=== PATIENT | male | born 1935 | race Caucasian/White ===

== ENCOUNTER 2017-12-24 22:06 | Inpatient (IN) | payer MEDICARE ==
[~2017-12-24] VITALS: Ht 185.4 cm; Wt 100.0 kg
[2017-12-25] VITALS: BP 164/100; PULSE 103; RESP 20; TEMP 97.6; O2SAT 95
[2017-12-25] MEDS ORDERED: ACETAMINOPHEN 325 MG TAB PO PRN (00:30)
[2017-12-25] MEDS ORDERED: MAGNESIUM HYDROXIDE SUSP 30 ML CUP PO PRN (00:30)
[2017-12-25] MEDS ORDERED: ALUMINUM/MAGNESIUM/SIMETH 30 ML CUP PO PRN (00:30)
[2017-12-25] MEDS ORDERED: DEXTROSE 50% IN WATER 50 ML VIAL(D50) IV PUSH PRN (00:45)
[2017-12-25 06:06] VITALS: BP 125/62; PULSE 76; RESP 18; TEMP 97.7; O2SAT 94
[2017-12-25 07:50] LABS: BICARBONATE 25.7 MEQ/L (21.0-32.0); BLOOD UREA NITROGEN 22 MG/DL (7-18); CALCIUM 8.8 MG/DL (8.5-10.1); CHLORIDE 106 MEQ/L (98-107); CREATININE 0.87 MG/DL (0.60-1.30); GLOMERULAR FILTRATION RATE 84 ML/MIN (>89); GLUCOSE,RANDOM 132 MG/DL (74-106); SODIUM (NA) 142 MEQ/L (136-145)
[2017-12-25 07:52] LABS: CHOLESTEROL 81 MG/DL (120-200); TRIGLYCERIDES 81 MG/DL (42-150)
[2017-12-25 07:53] LABS: CHOLESTEROL/ HDL RATIO 2.19 RATIO; HDL CHOLESTEROL 36.9 MG/DL (40.0-60.0); LDL CHOLESTEROL 28 MG/DL (0-99)
[2017-12-25] MEDS ORDERED: INDIVIDUALIZED INSULIN NOVOLIN REGULAR SUPPLEMENTAL SCALE SQ SCH (08:00)
[2017-12-25] MEDS: LOW DOSE INSULIN NOVOLOG SUPPLEMENTAL SCALE SQ SCH ×2 (08:10→11:25)
[2017-12-25] MEDS ORDERED: METOPROLOL TARTRATE 100 MG TAB PO SCH (09:00)
[2017-12-25] MEDS ORDERED: NICOTINE 21 MG/24 HR PATCH T-DERMAL SCH (09:00)
[2017-12-25] MEDS ORDERED: HYDROCHLOROTHIAZIDE 12.5 MG CAP PO SCH (09:00)
[2017-12-25] MEDS ORDERED: CLOPIDOGREL 75 MG TAB PO SCH (09:00)
[2017-12-25] MEDS ORDERED: metFORMIN HCL 500 MG TAB PO SCH ×2 (09:00→21:00)
--- NOTE | 2017-12-25 10:10 | HHI.HP ---
Provisional Diagnosis Admission Date Dec 24, 2017 at 23:50 [place]. Adjustment disorder with mixed disturbances of emotion and conduct Certification of Person's Competence To Provide Express and Informed Consent I have personally examined Aidan Diaz , a person being served at [facility] on, Dec 25, 2017 09:52. Express and informed consent means consent voluntarily given in writing, by a competent person, after sufficient explanation and disclosure of the subject matter involved to enable the person to make a knowing and willful decision without any element of force, fraud, deceit, duress, or other form of constraint or coercion. This person is 18 years of age or older, is not now known to be incompetent to consent to treatment with a guardian advocate, and does not have a health care surrogate or proxy currently making medical treatment decisions. I have found this person to be one of the following: [xxxx] Competent to provide express and informed consent, as defined above, for voluntary admission to this facility and is competent to provide express and informed consent for treatment. He/she has the consistent capacity to make well reasoned, willful, and knowing decisions concerning his or her medical or mental health treatment. The person fully and consistently understands the purpose of the admission for examination/placement and is fully capable of personally exercising all rights assured under [place] Incompetent to provide express and informed consent to voluntary admission, and this is incompetent to provide express and informed consent to treatment. The person must be transferred to involuntary status and a petition for a guardian advocate filed with the Circuit Court. [] Refusing to provide express and informed consent to voluntary admission but is competent to provide express and informed consent for treatment. The person must be discharged or transferred to involuntary status. Form shall be completed within 24 hours of a person's arrival at the receiving facility and filed in the clinical record of each person: 1. Admitted on a voluntary basis 2. Permitted to provide express and informed consent to his/her own treatment 3. Allowed to transfer from involuntary to voluntary status 4. Prior to permitting a person to consent to his or her own treatment after having been previously found incompetent to consent to treatment. History of Present Illness Capacity: Has Capacity HPI Patient is an 82-year-old white male initially came to [facility] under a Hay act by the [facility] [employer] dated 12/24/2017 at 4:30 PM that document reviewed essentially states on 12/24/17 approximately 2:13 PM dispatch received a call from [facility] because is something that told his doctor that he was going to shoot himself in the shower. Clinic advised that the subject is bipolar and his terminal illness the case hardener told dispatch that he is very violent and that his is home once the left the residence she stated that Aidan was last seen at the desk where his handgun is stored attempts to call Aidan out of the residence where successful after approximately 1 hour upon exiting. Became extremely upset and attempted to make his way back to the desk stating there is no gone in there that is located in the desk Aidan told officers that he had a plan to shoot himself with shower so there would be no mess. Patient was seen screen in that facility urine toxicology negative blood alcohol level negative patient was medically cleared and transferred to this facility under the Hay act. At the present time patient sitting quietly in Sujey chair in the day room he is alert oriented calm cooperative with me. He states he has had some depression related to his diagnosis stage IV abdominal cancer undergoing chemotherapy at the present time though he states he is showing some slight improvement with that. He feels that he was arrested and incarcerated with this. I attempted to explain the Hay act to be did process that well. He states he did talk to his doctor yesterday morning and they asked him how he felt. He talked about being somewhat depressed. I think the aspirin if he had a firearm in the house. He said yes them the patient stated that he told in a joking manner that if he want to kill himself he take the gun out of the shower so he would not make a mass. Patient just moved here from [place] within the past year he has lived there all his life. [place] lives in the cabin and always have a firearm. 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 He also states that he is a member of the [employer] and did active and plays and movies based in [place]. He appears to been quite active man at the present time living with his second of 20+ years. He has 3 adult children and 8 grandchildren going through to college. He denies alcohol or drug use. He does deny suicidality homicidality voice or visions. He denies any prior psychiatric contact hospitalization psychotropic medication but it appears she may have had some brief psychiatric contact and number of years ago may be carrying a diagnosis of bipolar disorder but he does not describe any significant mood swings that appears at times he made B's somewhat hypomanic. Patient denies any physical or sexual abuse. He has had some various prior significant medical issues including cardiac issues with bypass surgery. And diabetes. I did call patient's . Her name is Sudha. She verify the above information. Also states that she feels he may have had some hypomanic episodes throughout his life. He has not been treated. Except for perhaps a brief time with Zoloft many years ago. In any event patient's will be coming here to visit with us within a few hours. We will determine what course of action to take it at that time. Review of Systems Constitutional: DENIES: Diaphoretic episodes, Fatigue, Fever, Weight gain, Weight loss, Chills, Dizziness, Change in appetite, Night Sweats Endocrine: DENIES: Heat/cold intolerance, Polydipsia, Polyuria, Polyphagia Eyes: DENIES: Blurred vision, Diplopia, Eye inflammation, Eye pain, Vision loss , Photosensitivity, Double Vision Ears, nose, mouth, throat: DENIES: Tinnitus, Hearing loss, Vertigo, Nasal discharge, Oral lesions, Throat pain, Hoarseness, Ear Pain, Running Nose, Epistaxis, Sinus Pain, Toothache, Odynophagia Respiratory: DENIES: Apneas, Cough, Snoring, Wheezing, Hemoptysis, Sputum production, Shortness of breath Cardiovascular: DENIES: Chest pain, Palpitations, Syncope, Dyspnea on Exertion , PND, Lower Extremity Edema, Orthopnea, Claudication Gastrointestinal: DENIES: Abdominal pain, Black stools, Bloody stools, Constipation, Diarrhea, Nausea, Vomiting, Difficulty Swallowing, Anorexia Genitourinary: DENIES: Sexual dysfunction, Urinary frequency, Urinary incontinence, Urgency, Hematuria, Dysuria, Nocturia, Penile Discharge, Testicular Pain, Testicular Swelling Musculoskeletal: DENIES: Joint pain, Muscle aches, Stiffness, Joint Swelling, Back pain, Neck pain Integumentary: DENIES: Abnormal pigmentation, Nail changes, Pruritus, Rash Hematologic/lymphatic: DENIES: Bruising, Lymphadenopathy Immunologic/allergic: DENIES: Eczema, Urticaria Neurologic: DENIES: Abnormal gait, Headache, Localized weakness, Paresthesias, Seizures, Speech Problems, Tremor, Poor Balance Psychiatric: COMPLAINS OF: Depression (Patient minimizes), Suicidal Ideation ( Patient denies) Past Psych History Psychological trauma history Patient denies Violence risk - others (6 mos) Low Violence risk - self (6 mos) Low to moderate Substance Abuse History Drugs/Alcohol past 12 months Patient denies Past Family Social History Coded Allergies: No Known Allergies (Unverified , 12/24/17) Past Medical History Strong history cardiac issues diabetes, and now stage IV cancer of the abdomen Current Medications Medications (Trade) Dose Ordered Sig/Sherwin Route Start Time Stop Time Status Last Admin (Tylenol) 650 mg Q4H PRN PO 12/25/17 00:30 (Milk Of Magnesia Liq) 30 ml DAILY PRN PO 12/25/17 00:30 (Mag-Al Plus Susp Liq) 30 ml Q6H PRN PO 12/25/17 00:30 (Habitrol 21 Mg Patch.24 Hr) 1 patch DAILY T-DERMAL 12/25/17 09:00 Miscellaneous Information 1 HS T-DERMAL 12/25/17 21:00 (Norvasc) 10 mg DAILY PO 12/25/17 09:00 (Plavix) 75 mg DAILY PO 12/25/17 09:00 (Microzide) 12.5 mg DAILY PO 12/25/17 09:00 (Glucophage) 500 mg DAILY PO 12/25/17 09:00 (Glucophage) 1,000 mg HS PO 12/25/17 21:00 (Lopressor) 100 mg BID PO 12/25/17 09:00 (Lipitor) 40 mg HS PO 12/25/17 21:00 (D50w (Vial) Inj) 50 ml UNSCH PRN IV PUSH 12/25/17 00:45 (NovoLOG SUPPLEMENTAL SCALE) 1 ACHS SLIDING SCALE SQ 12/25/17 08:00 Family Psych History None known Social History Patient lives with his second he has adult children and grandchildren he is quite close to Patient's Strengths (min. 2) Patient verbal able access healthcare Physical Exam Patient medically cleared [facility] at the present time patient quietly in his chair in the dayroom he is in no acute distress, no complaints of chest pain, is in no respiratory distress, no complaints of abdominal pain patient moving all 4 extremities without difficulty Vital Signs Vital Signs Date Time Temp Pulse Resp B/P (MAP) Pulse Ox O2 Delivery O2 Flow Rate FiO2 12/25/17 06:06 97.7 76 18 125/62 (83) 94 I/O 12/25/17 12/25/17 12/26/17 08:00 16:00 00:00 Intake Total 700 ml 240 ml Balance 700 ml 240 ml Lab Results Test 12/25/17 05:52 Blood Urea Nitrogen 22 MG/DL Creatinine 0.87 MG/DL Random Glucose 132 MG/DL Calcium Level 8.8 MG/DL Sodium Level 142 MEQ/L Potassium Level 4.2 MEQ/L Chloride Level 106 MEQ/L Carbon Dioxide Level 25.7 MEQ/L Anion Gap 10 MEQ/L Estimat Glomerular Filtration Rate 84 ML/MIN Triglycerides Level 81 MG/DL Cholesterol Level 81 MG/DL LDL Cholesterol 28 MG/DL HDL Cholesterol 36.9 MG/DL Cholesterol/HDL Ratio 2.19 RATIO Mental Status Examination Appearance: Appropriate Consciousness: Alert Orientation: x4 Motor Activity: Normal gait Speech: Unremarkable Language: Adequate Fund of Knowledge: Adequate Attention and Concentration: Adequate Memory: Unremarkable Mood: Other (Euthymic to mildly dysphoric) Affect: Other (Good range and intensity) Thought Process & Associations: Intact Thought Content: Appropriate Hallucination Type: None Delusion Type: None Suicidal Ideation: No Suicidal Plan: No Suicidal Intention: No Homicidal Ideation: No Homicidal Plan: No Homicidal Intention: No Insight: Adequate Judgment: Adequate Assessment & Plan Problem List: (1) Adjustment disorder with mixed disturbance of emotions and conduct ICD Codes: F43.25 - Adjustment disorder with mixed disturbance of emotions and conduct Assessment & Plan Estimated LOS: days at this time patient does not meet Hay criteria lift Hay act allow patient to sign voluntary. We will be meeting with the patient' s than an hour to discuss further treatment with her this be inpatient or outpatient and medication treatment Discharge Planning To be determined Request HC Surrog/Guard Advoc?: Dillon Motta MD Dec 25, 2017 10:10
[2017-12-25] MEDS ORDERED: ZOLO25TA PO (12:43)
--- NOTE | 2017-12-25 12:46 | HHI.DS ---
Psychiatry Discharge Summary Inpatient Psychiatric care?: Yes Advance Directive: No Reason Not Provided: DECLINED Mental Health AdvanceDirective: No Health Care Proxy: No Admission Admission Date Dec 24, 2017 at 23:50 Admission Diagnosis: (1) Adjustment disorder with mixed disturbance of emotions and conduct ICD Code: F43.25 - Adjustment disorder with mixed disturbance of emotions and conduct Brief History Patient is an 82-year-old white male initially came to [facility] under a Hay act by the [facility] [employer] dated 12/24/2017 at 4:30 PM that document reviewed essentially states on 12/24/17 approximately 2:13 PM dispatch received a call from [facility] because is something that told his doctor that he was going to shoot himself in the shower. Clinic advised that the subject is bipolar and his terminal illness the piano case and bench assembler told dispatch that he is very violent and that his is home once the left the residence she stated that Aidan was last seen at the desk where his handgun is stored attempts to call Aidan out of the residence where successful after approximately 1 hour upon exiting. Became extremely upset and attempted to make his way back to the desk stating there is no gone in there that is located in the desk Aidan told officers that he had a plan to shoot himself with shower so there would be no mess. Patient was seen screen in that facility urine toxicology negative blood alcohol level negative patient was medically cleared and transferred to this facility under the Hay act. At the present time patient sitting quietly in Sujey chair in the day room he is alert oriented calm cooperative with me. He states he has had some depression related to his diagnosis stage IV abdominal cancer undergoing chemotherapy at the present time though he states he is showing some slight improvement with that. He feels that he was arrested and incarcerated with this. I attempted to explain the Hay act to be did process that well. He states he did talk to his doctor yesterday morning and they asked him how he felt. He talked about being somewhat depressed. I think the aspirin if he had a firearm in the house. He said yes them the patient stated that he told in a joking manner that if he want to kill himself he take the gun out of the shower so he would not make a mass. Patient just moved here from [place] within the past year he has lived there all his life. [place] lives in the cabin and always have a firearm. 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 He also states that he is a member of the [employer] and did active and plays and movies based in [place]. He appears to been quite active man at the present time living with his second of 20+ years. He has 3 adult children and 8 grandchildren going through to college. He denies alcohol or drug use. He does deny suicidality homicidality voice or visions. He denies any prior psychiatric contact hospitalization psychotropic medication but it appears she may have had some brief psychiatric contact and number of years ago may be carrying a diagnosis of bipolar disorder but he does not describe any significant mood swings that appears at times he made B's somewhat hypomanic. Patient denies any physical or sexual abuse. He has had some various prior significant medical issues including cardiac issues with bypass surgery. And diabetes. I did call patient's . Her name is Sudha. She verify the above information. Also states that she feels he may have had some hypomanic episodes throughout his life. He has not been treated. Except for perhaps a brief time with Zoloft many years ago. In any event patient's will be coming here to visit with us within a few hours. We will determine what course of action to take it at that time. Tobacco Use In Past 30 Days: No Tobacco Past 30 Days Alcohol Use: Never Hospital Course Please see above note dictated under brief history. After that note dictated we did meet with patient's . She shared with us the fact the patient did have a chemotherapy treatment with heavy doses of steroids for the week prior to this episode. Patient continues to denies suicidality homicidality voices or visions. He does wish to return home with his today. Patient's verifies he feels he is safe to go home we did discuss medications patient is willing to start a small dose of Zoloft to see if this will help his depression thus patient will be discharged today Rx Zoloft 25 mg daily with no refill follow-up with his PCP Results Blood Pressure 125 / 62 Vital Signs Date Time Temp Pulse Resp B/P (MAP) Pulse Ox O2 Delivery O2 Flow Rate FiO2 12/25/17 06:06 97.7 76 18 125/62 (83) 94 Laboratory Tests Test 12/25/17 05:52 Blood Urea Nitrogen 22 MG/DL (7-18) Random Glucose 132 MG/DL (74-106) Estimat Glomerular Filtration Rate 84 ML/MIN (>89) Cholesterol Level 81 MG/DL (120-200) HDL Cholesterol 36.9 MG/DL (40.0-60.0) Laboratory Results Test 12/25/17 05:52 Cholesterol Level 81 MG/DL (120-200) HDL Cholesterol 36.9 MG/DL (40.0-60.0) LDL Cholesterol 28 MG/DL (0-99) Triglycerides Level 81 MG/DL (42-150) Summary of Procedures None done Pending results at discharge: No Medications # of Antipsychotic meds at D/C: 0 Approp Antipsych med options 1 - Minimum of three failed multiple trials of monotherapy. 2 - Documented plan to taper to monotherapy due to previous use of multiple meds OR cross-taper in progress at D/C. 3 - Documentation of augmentation of Clozapine. 4 - Justification other than those listed in allowable values 1-3, document here : Discharge Discharge Date: Dec 25, 2017 Discharge Diagnosis: (1) Adjustment disorder with mixed disturbance of emotions and conduct Diagnosis: Principal ICD Code: F43.25 - Adjustment disorder with mixed disturbance of emotions and conduct Pt Condition on Discharge: Good Discharge Disposition: Discharge Home Discharge Instructions Diet Instructions: As Tolerated, No Restrictions Activities you can perform: Regular-No Restrictions Scheduled Appointment: PCP Discharge Time > 30 minutes Mental Status Examination Appearance: Appropriate Consciousness: Alert Orientation: x4 Motor Activity: Normal gait Speech: Unremarkable Language: Adequate Fund of Knowledge: Adequate Attention and Concentration: Adequate Memory: Unremarkable Mood: Other (Euthymic to mildly dysphoric) Affect: Other (Good range and intensity) Thought Process & Associations: Intact Thought Content: Appropriate Hallucination Type: None Delusion Type: None Suicidal Ideation: No Suicidal Plan: No Suicidal Intention: No Homicidal Ideation: No Homicidal Plan: No Homicidal Intention: No Insight: Adequate Judgment: Adequate Discharge/Advance Care Plan Health Problems: (1) Adjustment disorder with mixed disturbance of emotions and conduct Goals to promote your health * To prevent worsening of your condition and complications * To maintain your health at the optimal level Directions to meet your goals Take your medications as prescribed Follow your dietary instruction Follow activity as directed Keep your appointments as scheduled Take your immunizations and boosters as scheduled If your symptoms worsen call your PCP, if no PCP go to Urgent Care Center or Emergency Room For 20/01 questions related to your inpatient stay or results of tests pending at discharge, please contact Dr. Dillon Calixto at Smoking is Dangerous to Your Health. Avoid second hand smoking Dillon Calixto MD Dec 25, 2017 12:46
[2017-12-25 13:49] LABS: HEMOGLOBIN A1C 7.5 % (4.3-6.0)
[2017-12-25] MEDS ORDERED: ATORVASTATIN 40 MG TAB PO SCH (21:00)
[2017-12-25] MEDS ORDERED: REMOVE OLD NICOTINE PATCH T-DERMAL SCH (21:00)
== END 2017-12-25 14:05 | disposition home or self-care (01) | DRG 882 ==
LOC: H250 23:50
PROVIDERS: ADMIT Psychiatry & Neurology Psychiatry; ATTEND Psychiatry & Neurology Psychiatry
DX: F43.25 Adjustment disorder with mixed disturbance of emotions and conduct (principal); C79.9 Secondary malignant neoplasm of unspecified site; E11.9 Type 2 diabetes mellitus without complications; C76.2 Malignant neoplasm of abdomen
CPT/HCPCS: 80048; 80061; 82948; 83036; J1815